=== PATIENT | female | born 1965 | race African-American/Black ===

== ENCOUNTER 2016-11-25 21:25 | Emergency (ER) | payer OTHER ==
[~2016-11-25] VITALS: Ht 157.5 cm; Wt 68.0 kg
[~2016-11-25 21:25] MED LIST: ACETAMINOPHEN-1 EAC3 PO; PERCOCET 5-3251 EACH PO
[2016-11-25 23:46] VITALS: BP 138/72
[2016-11-25] MEDS ORDERED: PREDNISONE20 M1 PO (23:56)
[2016-11-25] MEDS ORDERED: VALTREX1000 MG PO (23:56)
[2016-11-25] MEDS ORDERED: PERCOCET 5-3251 EACH PO (23:58)
[2016-11-25] MEDS ORDERED: NEURONTIN100 M1 PO (23:58)
[2016-11-25] MEDS ORDERED: IBUPROFEN600 M1 PO (23:58)
--- NOTE | 2016-11-25 23:59 | ED SKIN/ALLERGY COMPLAINT ---
History of Present Illness General Chief Complaint: Skin Rash/ Abcess Stated Complaint: "THINK I HAVE SHINGLES ON MY L CHEEK" PER PT Source: patient, old records Exam Limitations: no limitations Vital Signs & Intake/Output Vital Signs & Intake/Output Vital Signs Date Time Temp Pulse Resp B/P Pulse O2 O2 Flow FiO2 Ox Delivery Rate 11/25 2346 98.7 77 18 138/72 98 Room Air 11/25 2205 10.1 77 18 115/83 98 Room Air ED Intake and Output 11/26 0000 11/25 1200 Intake Total Output Total Balance Patient 150 lb Weight Allergies Coded Allergies: NO KNOWN ALLERGIES (01/19/11) Reconcile Medications Acetaminophen With Codeine (Acetaminophen-Cod #3 Tablet) 1 EACH TABLET 1 TAB PO TIDPRN PAIN CONTROL (Reported) Gabapentin (Neurontin) 100 MG CAPSULE 1 CAP PO TID PRN shingles pain Ibuprofen 600 MG TABLET 1 TAB PO Q6PRN PRN pain with food Oxycodone HCl/Acetaminophen (Percocet 5-325 MG Tablet) 1 EACH TABLET 1-2 TAB PO Q6P PRN pain Oxycodone HCl/Acetaminophen (Percocet 5-325 MG Tablet) 5 MG-325 MG TABLET 1 TAB PO Q6P PRN severe pain Prednisone 20 MG TABLET 1 TAB PO BID shingles Valacyclovir HCl (Valtrex) 1,000 MG TABLET 1 TAB PO TID shingles Triage Note: PT TO ED C/O SPREADING SHINGLES. STATES HAD SHINGELS TO RT SIDE OF FACE AND HEAD "I THINK IT'S SPREADING" "I DIDN'T GET THE MEDICAINE THE LAST TIME, I WANT TO GET THE MEDICINE THIS TIME" Triage Nurses Notes Reviewed? yes Onset: Just prior to arrival Duration: day(s):, constant, continues in ED, getting worse Timing: recent history Severity: mild Location: face Possible Factors: no cause identified No Modifying Factors: none Associated Symptoms: change in skin texture, rash LMP (ages 10-50): post menopausal : No Patient currently breastfeeds: No HPI: 2 days prior to admission patient complains of right cheek pain with subsequent development of rash similar to previous episode of shingles. She denies fever chills nausea vomiting diarrhea abdominal pain chest pain shortness breath headache dysuria bleeding change in vision. Past History Travel History Traveled to [place] past 21 day No Medical History Any Pertinent Medical History? 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 No Review of Systems Review of Systems Constitutional: Reports: no symptoms. EENTM: Reports: no symptoms. Respiratory: Reports: no symptoms. Cardiovascular: Reports: no symptoms. GI: Reports: no symptoms. Genitourinary: Reports: no symptoms. Musculoskeletal: Reports: no symptoms. Skin: Reports: see HPI, rash. Neurological/Psychological: Reports: no symptoms. Hematologic/Endocrine: Reports: no symptoms. Immunologic/Allergic: Reports: no symptoms. All Other Systems: Reviewed and Negative Physical Exam Physical Exam General Appearance: well developed/nourished, alert, awake, anxious, mild distress Head: atraumatic Eyes: Bilateral: PERRL, EOMI. Ears, Nose, Throat: normal pharynx, normal ENT inspection, hearing grossly normal Neck: normal inspection, supple Respiratory: normal breath sounds Cardiovascular: regular rate/rhythm Peripheral Pulses: 4+ carotid (R), 4+ carotid (L) Gastrointestinal: soft, non-tender Back: normal inspection Extremities: normal inspection, normal range of motion, no edema Neurologic/Psych: awake, alert, oriented x 3, normal mood/affect Reflexes: 2+: bicep (R), bicep (L). Skin: intact, rash (right cheek bridge of nose) Skin Problem Location: face Skin Problem Character: rash, thickening, vesicular Lymphatic: no anterior cervical raquel Progress Differential Diagnosis: abscess/cellulitis, allergic reaction, shingles Plan of Care: Valtrex analgesia steroid Departure Departure Time of Disposition: 2353 Disposition: HOME OR SELF CARE Condition: Stable Clinical Impression Primary Impression: Shingles Qualifiers: Herpes zoster complications: without complications Qualified Code: B02.9 - Zoster without complications Referrals: PATIENT HAS NO PRIMARY CARE DR (PCP/Family) Departure Forms: Customer Survey General Discharge Information Prescriptions: Current Visit Scripts Prednisone 1 TAB PO BID #10 TAB Valacyclovir HCl (Valtrex) 1 TAB PO TID #30 TAB Ibuprofen 1 TAB PO Q6PRN PRN pain #50 TAB with food Oxycodone HCl/Acetaminophen (Percocet 5-325 MG Tablet) 1 TAB PO Q6P PRN severe pain #20 TAB Gabapentin (Neurontin) 1 CAP PO TID PRN shingles pain #50 CAP
== END 2016-11-26 00:21 ==
LOC: ERH 21:25
DX: B02.9 Zoster without complications (principal)
CPT/HCPCS: J3490

== ENCOUNTER 2017-01-02 18:39 | Emergency (ER) | payer OTHER ==
[~2017-01-02] VITALS: Ht 157.5 cm; Wt 72.1 kg
[~2017-01-02 18:39] MED LIST changes: +IBUPROFEN600 M1 PO; +NEURONTIN100 M1 PO; +PREDNISONE20 M1 PO; +VALTREX1000 MG PO
--- NOTE | 2017-01-02 19:41 | ED HAND/WRIST INJURY COMPLAINT ---
History of Present Illness General Chief Complaint: Hand or Wrist Injury Stated Complaint: FALL, L WRIST PAIN Source: patient, family, old records Exam Limitations: no limitations Vital Signs & Intake/Output Vital Signs & Intake/Output Vital Signs Date Time Temp Pulse Resp B/P B/P Pulse O2 O2 Flow FiO2 Mean Ox Delivery Rate 01/03 2024 97.7 88 18 126/78 97 Room Air 01/02 1849 96.0 99 16 129/89 97 Room Air ED Intake and Output 01/03 0000 01/02 1200 Intake Total Output Total Balance Patient 159 lb Weight Weight Reported by Patient Measurement Method Allergies Coded Allergies: NO KNOWN ALLERGIES (01/19/11) Triage Note: PT STATES SHE FELL AND INJURED HER LEFT WRIST Triage Nurses Notes Reviewed? yes HPI: Patient is a 51 year old female presents complaining of left wrist pain s/p fall. Fall occurred at approximately 4pm today. Patient reports pain is severe , worsens with movement and palpation, has not taken any medication for her symptoms. Patient is right hand dominant. Denies head injury, neck pain, loss of consciousness, numbness. (MAURICIO TO) Reconcile Medications Ibuprofen 800 MG TABLET 1 TAB PO Q8H PRN pain Oxycodone HCl/Acetaminophen (Percocet 5-325 MG Tablet) 5 MG-325 MG TABLET 1 TAB PO Q6H PRN PAIN (MUSTAPHA JORGENSEN,BEE Zavala) Past History Travel History Traveled to [place] past 21 day No Medical History Any Pertinent Medical History? 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 No (MAURICIO TO) Review of Systems Review of Systems Constitutional: Reports: no symptoms. Cardiovascular: Denies: chest pain, syncope. GI: Denies: abdominal pain. Musculoskeletal: Reports: see HPI. Denies: back pain, neck pain. Skin: Reports: no symptoms. Neurological/Psychological: Denies: numbness, paresthesia. Hematologic/Endocrine: Denies: bruising, bleeding. Immunologic/Allergic: Denies: splenectomy. (MAURICIO TO) Physical Exam Physical Exam General Appearance: well developed/nourished, alert, awake Head: atraumatic, normal appearance Eyes: Bilateral: normal appearance. Ears, Nose, Throat: hearing grossly normal Neck: normal inspection, supple, full range of motion, no midline tenderness Cardiovascular/Respiratory: no respiratory distress Back: normal inspection, normal range of motion, no vertebral tenderness Shoulder Left: normal range of motion, normal inspection, nontender Elbow Left: normal range of motion, normal inspection, nontender Forearm Left: tenderness and swelling distal radius. Radial and ulnar pulses 2+ Wrist Left: tenderness distal radius Hand Left: normal inspection, normal range of motion Hand Right: normal inspection, normal range of motion Neurologic/Tendon: normal sensation, normal motor functions, normal tendon functions (MAURICIO TO) Progress Differential Diagnosis: contusion, compartment syndrome, dislocation, fracture, sprain Plan of Care: Orders Procedure Date/time Status Durable Medical Equipment 01/02 1949 Active Results of x-rays discussed with patient. Patient placed in sugar tong splint. Appears stable for discharge and follow-up with orthopedics. (MAURICIO TO) Diagnostic Imaging: Viewed by Me: Radiology Read. Discussed w/RAD: Radiology Read. Radiology Impression: PATIENT: JANNETTE MAN V PRESENT AGE: 51 PATIENT ACCOUNT NO: [id number] : 64 LOCATION: [facility] ORDERING PHYSICIAN: MAURICIO AGUIRRE SERVICE DATE: 01/02/17 EXAM TYPE: RAD - XRY-WRIST COMPLETE-LEFT EXAMINATION: XR WRIST, LEFT CLINICAL INFORMATION: Fall, pain COMPARISON: None TECHNIQUE: AP, lateral, and oblique views of the left wrist. FINDINGS: There is an acute nondisplaced fracture of distal radius with involvement of the radiocarpal joint . Adjacent soft tissue swelling noted. No acute dislocation seen. IMPRESSION: Acute nondisplaced distal radial fracture. DICTATED BY: NUHA MENCHACA MD DATE/TIME DICTATED:01/02/171953 INSPECTOR SCALES:ANGELIA DATE/TIME TRANSCRIBED:01/02/171953 CONFIDENTIAL, DO NOT COPY WITHOUT APPROPRIATE AUTHORIZATION. <Electronically signed in Other Vendor System> SIGNED BY: NUHA MENCHACA MD 01/02/171958 (MAURICIO TO) Departure Departure Time of Disposition: 2008 Disposition: HOME OR SELF CARE Condition: Stable Clinical Impression Primary Impression: Distal radius fracture, left Qualifiers: Encounter type: initial encounter Fracture type: closed Fracture morphology: unspecified fracture morphology Qualified Code: S52.502A - Unspecified fracture of the lower end of left radius, initial encounter for closed fracture Referrals: PATIENT HAS NO PRIMARY CARE DR (PCP/Family) KATIUSKA JORGENSEN,KENNEY Zavala Additional Instructions: Follow-up with the orthopedist listed in her discharge paperwork for further evaluation. Call tomorrow to be seen this week for further evaluation. Wear the splint until you are seen by the orthopedist. Rest, elevate above the level of your heart. Return to the emergency department if numbness, discoloration of the fingers, pain uncontrollable, or worsening of symptoms. Departure Forms: Customer Survey General Discharge Information Prescriptions: Current Visit Scripts Ibuprofen 1 TAB PO Q8H PRN pain #30 TAB Oxycodone HCl/Acetaminophen (Percocet 5-325 MG Tablet) 1 TAB PO Q6H PRN PAIN #12 TAB (MAURICIO TO) PA/METAL FRAMER Co-Sign Statement Statement: ED Attending supervision documentation- [] I saw and evaluated the patient. I have also reviewed all the pertinent lab results and diagnostic results. I agree with the findings and the plan of care as documented in the PA's/METAL FRAMER's documentation. [x] I have reviewed the ED Record and agree with the PA's/METAL FRAMER's documentation. [] Additions or exceptions (if any) to the PAs/METAL FRAMER's note and plan are summarized below: [] (MUSTAPHA JORGENSEN,BEE Zavala) Procedures Splinting Location: LEFT UPPER EXTREMITY Hand-Made Type: orthoglass Splint: sugar-tong Splint Applied By: splint applied by me Pre-Proc Neuro Vasc Exam: normal Post-Proc Neuro Vasc Exam: normal (MAURICIO TO)
--- NOTE | 2017-01-02 19:59 | RADIOLOGY REPORT ---
EXAMINATION: XR WRIST, LEFT CLINICAL INFORMATION: Fall, pain COMPARISON: None TECHNIQUE: AP, lateral, and oblique views of the left wrist. FINDINGS: There is an acute nondisplaced fracture of distal radius with involvement of the radiocarpal joint . Adjacent soft tissue swelling noted. No acute dislocation seen. IMPRESSION: Acute nondisplaced distal radial fracture.
[2017-01-02] MEDS ORDERED: IBUPROFEN800 M1 PO (20:11)
[2017-01-02] MEDS ORDERED: PERCOCET 5-3251 EACH PO (20:11)
[2017-01-02 20:24] VITALS: BP 126/78
== END 2017-01-02 20:25 ==
LOC: ERH 18:39
DX: S52.502A Unspecified fracture of the lower end of left radius, initial encounter for closed fracture (principal); W19.XXXA Unspecified fall, initial encounter; Y93.9 Activity, unspecified; Y92.9 Unspecified place or not applicable
CPT/HCPCS: 73110-LT

== ENCOUNTER 2017-01-05 20:27 | Emergency (ER) | payer OTHER ==
[~2017-01-05] VITALS: Ht 157.5 cm; Wt 72.1 kg
[~2017-01-05 20:27] MED LIST changes: +IBUPROFEN800 M1 PO
--- NOTE | 2017-01-05 21:13 | ED UPPER/LOWER EXTREMITY COMPL ---
History of Present Illness General Chief Complaint: Upper Extremity Injury Stated Complaint: LEFT ARM PAIN Source: patient, family, old records Exam Limitations: no limitations Vital Signs & Intake/Output Vital Signs & Intake/Output Vital Signs Date Time Temp Pulse Resp B/P B/P Pulse O2 O2 Flow FiO2 Mean Ox Delivery Rate 01/05 2043 97.1 81 15 128/78 100 Room Air Allergies Coded Allergies: NO KNOWN ALLERGIES (01/19/11) Reconcile Medications Ibuprofen 800 MG TABLET 1 TAB PO Q8H PRN pain Oxycodone HCl/Acetaminophen (Percocet 5-325 MG Tablet) 5 MG-325 MG TABLET 1 TAB PO Q6H PRN PAIN Triage Note: PT TO ED FOR L ARM PAIN, SEEN TUESDAY HERE IN ED FOR SAME, REPORTING SHE WAS TOLD SHE HAS A FRACTURE. PT TO ED BC SHE HAS NOT FOLLOWED UP WITH ORTHO "ANY MY SPLINT NEEDS TO FIXED, ITS TOO BIG AND BULKY" PT REPORTING SHE HAS NOT SEEN ORTHO "BECAUSE OF MY SITUATION". Triage Nurses Notes Reviewed? yes Onset: Abrupt Duration: day(s): (3) Timing: remote history Severity: mild, moderate Pain/Injury Location: Left: Forearm, Wrist. Method of Injury: fall No Modifying Factors: none Associated Symptoms: stiffness HPI: This is a 51-year-old female who fell and broke her left wrist on Tuesday. She was in the ER has been placed and was told to follow-up with orthopedics. She states she hasn't done that yet because she thought that she'll need to keep the splint on at this point is all he. She's been taking ibuprofen with minimal relief. She does admit to receiving Percocet but didn't take it today. Son presents the ER requesting information for the orthopedics referral again. Past History Travel History Traveled to [place] past 21 day No Medical History Any Pertinent Medical History? 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 No Review of Systems Review of Systems Constitutional: Denies: chills, fever. EENTM: Reports: no symptoms. Respiratory: Reports: no symptoms. Cardiovascular: Denies: chest pain. Gastrointestinal/Abdominal: Reports: no symptoms. Genitourinary: Reports: no symptoms. Musculoskeletal: Reports: joint pain. Skin: Reports: no symptoms. Neurological/Psychological: Reports: no symptoms. Hematologic/Endocrine: Denies: bleeding. Immunological: Reports: no symptoms. All Other Systems: Reviewed and Negative Comments PAINFUL/BULKY SPLINT Physical Exam Physical Exam General Appearance: well developed/nourished, alert, awake, mild distress Head: normal appearance Ears, Nose, Throat: hearing grossly normal Neck: normal inspection, supple, full range of motion Shoulder Left: normal range of motion, normal inspection Shoulder Right: normal range of motion, normal inspection Elbow Left: IN SUGAR TONG SPLINT Elbow Right: normal range of motion, normal inspection Hand Left: IN SPLINT, TENDER OVER WRIST Hand Right: normal inspection, normal range of motion Progress Differential Diagnosis: PAINFUL SPLINT, NON COMPLIANCE WITH ORTHOPEDICS Plan of Care: Orders Procedure Date/time Status Durable Medical Equipment 01/05 2138 Active Current Medications Sig/Neymar Start time Last Medication Dose Stop Time Status Admin Oxycodone/ 1 TAB ONCE ONE 01/05 2145 UNVr 01/05 Acetaminophen 01/05 (Percocet) Percocet administered. Patient requesting to be resplinted. Sugar tong splints removed and replaced. (SHAKA JORGENSEN,HIPOLITO) Departure Departure Time of Disposition: 2140 Disposition: HOME OR SELF CARE Condition: Stable Clinical Impression Primary Impression: Radius fracture Referrals: KATIUSKA JORGENSEN,KENNEY Zavala Additional Instructions: Please take the Motrin and Percocet as directed. Keep the splint on until following up with Dr. Fonseca orthopedics. Departure Forms: Customer Survey General Discharge Information Procedures Splinting Location: LEFT ARM SUGAR TONG SPLINT PLACED, SHOULDER IMMOBILIZER PLACED
[2017-01-05 21:49] VITALS: BP 130/75
== END 2017-01-05 21:57 ==
LOC: ERH 20:27
DX: S52.92XA Unspecified fracture of left forearm, initial encounter for closed fracture (principal); X58.XXXA Exposure to other specified factors, initial encounter; Y92.9 Unspecified place or not applicable; Y93.9 Activity, unspecified

== ENCOUNTER 2017-02-06 18:01 | Observation (INO) | payer OTHER ==
[~2017-02-06] VITALS: Ht 162.6 cm; Wt 63.5 kg
--- NOTE | 2017-02-06 18:32 | ED SYNCOPE COMPLAINT ---
History of Present Illness General Chief Complaint: Syncope and Near-Syncope Stated Complaint: SYNCOPE Source: patient, family, EMS Exam Limitations: no limitations Vital Signs & Intake/Output Vital Signs & Intake/Output Vital Signs Date Time Temp Pulse Resp B/P B/P Pulse O2 O2 Flow FiO2 Mean Ox Delivery Rate 02/06 2144 64 18 114/71 96 Room Air 02/06 1829 84 118/73 02/06 1805 98.2 81 18 94/69 99 Room Air Allergies Coded Allergies: NO KNOWN ALLERGIES (01/19/11) Reconcile Medications No Known Home Medications Triage Note: AFTER BEING IN [employer] SINCE EARLY THIS MORNING AND NOT TAKING TIME TO EAT OR DRINK, PATIENT HAD NEAR SYNCOPAL EPISODE. -LOC +HYPOTENSION 80/40 Triage Nurses Notes Reviewed? yes Timing: single episode today Precipitating Factors: none Context: SITTING AT [employer] Loss of Consciousness: brief (seconds) Associated Symptoms: dizziness, syncope HPI: 51-year-old female presents to emergency department following a syncopal episode. She states that while at religion she was sitting and suddenly blacked out without any prodromal symptoms. Her daughter says that the patient headache away look over her eyes and then began to fall she caught her before she hit the ground. She remained on the ground with her eyes open staring off however and unresponsive for up to 60 seconds. Patient states that she experience a syncopal episode in 2013 and was admitted for about 145 days due to her HIV status. She reports that she has not followed up with an infectious disease specialist in over 1 year and stopped taking HIV medications because she did not like the side effects. Today she denies dizziness, chest pain, dyspnea, lightheadedness, confusion, abdominal pain, changes in weight, recent infection, fevers, chills, changes in vision, changes in bowel movements. Upon second interview she states that she saw her infectious disease specialist last month. (KARINA HENDRICKSON) Past History Travel History Traveled to [place] past 21 day No Medical History Any Pertinent Medical History? 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 No (KARINA HENDRICKSON) Review of Systems Review of Systems Constitutional: Reports: see HPI. EENTM: Reports: no symptoms. Respiratory: Reports: no symptoms. Cardiovascular: Reports: see HPI. GI: Reports: no symptoms. Genitourinary: Reports: no symptoms. Musculoskeletal: Reports: no symptoms. Skin: Reports: no symptoms. Neurological/Psychological: Reports: see HPI. All Other Systems: Reviewed and Negative (KARINA HENDRICKSON) Physical Exam Physical Exam General Appearance: well developed/nourished, no apparent distress, awake, slow speech Head: atraumatic, normal appearance Eyes: Bilateral: normal appearance, PERRL, EOMI. Ears, Nose, Throat: hearing grossly normal Neck: normal inspection, supple, full range of motion Respiratory: normal breath sounds, chest non-tender, no respiratory distress, lungs clear Cardiovascular: regular rate/rhythm Gastrointestinal: normal bowel sounds, soft, non-tender Back: normal inspection, normal range of motion Extremities: normal inspection, normal range of motion Psychiatric: awake, oriented x 3 Cranial Nerves: normal hearing, normal speech, PERRL Motor/Sensory: no motor/sensory deficits Skin: intact, normal color Core Measures ACS in differential dx? Yes CVA/TIA Diagnosis: No Severe Sepsis Present: No Septic Shock Present: No (KARINA HENDRICKSON) Progress Differential Diagnosis: AMI, aortic dissection, drug induced syncope, orthostatic syncope, pericardial tamponade, pulmonary embolus, seizure, sick sinus syndrome, subarachnoid hem., TIA/CVA (AIDS), sepsis Plan of Care: Orders Procedure Date/time Status Nothing by Mouth 02/07 B Active LACTIC ACID 02/06 2341 Active Patient Data 02/06 2145 Active Saline Lock 02/[address] in observation 02/06 2110 Active Misc Message 02/06 2110 Active ED Holding Orders 02/06 2110 Active Vital Signs 02/06 2110 Active Code Status 02/06 2110 Active BLOOD CULTURE 02/06 2041 Active LACTIC ACID 02/06 204 Active MISTAKE 02/06 183 Active Telemetry/Casework Manager 02/06 1830 Active URINALYSIS 02/06 183 Active TROPONIN LEVEL 02/06 183 Complete COMPREHENSIVE METABOLIC PANEL 02/06 1830 Complete CBC WITHOUT DIFFERENTIAL 02/06 183 Complete EKG 02/06 1803 Active Laboratory Tests 02/06/173: Urine Color Pending, Urine Clarity Pending, Urine pH Pending, Ur Specific [place] Pending, Urine Protein Pending, Urine Ketones Pending, Urine Nitrite Pending, Urine Bilirubin Pending, Urine Urobilinogen Pending, Ur Leukocyte Esterase Pending, Ur Microscopic SEDIMENT EXAMINED, Urine RBC Pending, Urine Hemoglobin Pending, Urine Glucose Pending 02/06/172104: Lactic Acid Pending 02/06/171829: Anion Gap 9, Estimated GFR 58 L, BUN/Creatinine Ratio 16.0, Glucose 92, Calcium 9.2, Total Bilirubin 0.5, AST 59 H, ALT 65 H, Alkaline Phosphatase 227 H, Troponin I < 0.01, Total Protein 6.7, Albumin 3.8, Globulin 2.9, Albumin/ Globulin Ratio 1.3, CBC w Diff MAN DIFF ORDERED, RBC 3.86 L, MCV 79.6 L, MCH 26.5 L, RDW 15.9 H, MPV 11.1 H, Gran % 73.5, Lymphocytes % 12.8 L, Monocytes % 12.1 H, Eosinophils % 1.6, Basophils % 0 L, Absolute Granulocytes 1.5, Segmented Neutrophils 71, Band Neutrophils 6 H, Absolute Lymphocytes 0.3 L, Lymphocytes 13 L, Monocytes 10 H, Absolute Monocytes 0.2, Absolute Eosinophils 0, Absolute Basophils 0, Platelet Estimate DECREASED, Hypochromic-Microcytic 1+, Anisocytosis 1+, Microcytic Cells 1+, PUBS MCHC 33.3 Microbiology 02/06 2105 BLOOD: Blood Culture - RECD 02/06 2041 BLOOD: Blood Culture - ORD Diagnostic Imaging: Viewed by Me: Radiology Read, CT Scan. Discussed w/RAD: Radiology Read, CT Scan. Radiology Impression: PATIENT: JANNETTE MAN PRESENT AGE: 51 PATIENT ACCOUNT NO: [id number] : 64 LOCATION: [facility] ORDERING PHYSICIAN: KARINA AGUIRRE SERVICE DATE: 02/06/17 EXAM TYPE : CAT - CT HEAD WO IV CONTRAST EXAMINATION: CT HEAD WITHOUT CONTRAST CLINICAL INFORMATION: 51-year-old woman with syncope. COMPARISON: None TECHNIQUE: Contiguous axial imaging was performed from the skull base to vertex without intravenous administration of contrast. DLP: 621 mGy-cm FINDINGS: There is no evidence of acute intracranial hemorrhage or territorial infarction. No abnormal mass effect or midline shift is seen. Flores to white matter differentiation is well preserved. No extra-axial fluid collections are identified. The ventricles are normal in size. Mild chronic microvascular ischemic changes are noted throughout the supratentorial white matter. The osseous structures and soft tissues are normal. The mastoid air cells and visualized portions of the paranasal sinuses are well aerated. IMPRESSION: No acute intracranial pathology. DICTATED BY: ALEX SIMS MD DATE/TIME DICTATED:02/06/171946 HIV/AIDS CARE NURSE: ANGELIA DATE/TIME TRANSCRIBED:02/06/171946 CONFIDENTIAL, DO NOT COPY WITHOUT APPROPRIATE AUTHORIZATION. <Electronically signed in Other Vendor System> SIGNED BY: ALEX SIMS MD 02/06/171951, SERVICE DATE: 02/06/171829 EXAM TYPE: CAT - CT HEAD WO IV CONTRAST EXAMINATION: CT HEAD WITHOUT CONTRAST CLINICAL INFORMATION: 51-year-old woman with syncope. COMPARISON: None TECHNIQUE: Contiguous axial imaging was performed from the skull base to vertex without intravenous administration of contrast. DLP: 621 mGy-cm FINDINGS: There is no evidence of acute intracranial hemorrhage or territorial infarction. No abnormal mass effect or midline shift is seen. Flores to white matter differentiation is well preserved. No extra-axial fluid collections are identified. The ventricles are normal in size. Mild chronic microvascular ischemic changes are noted throughout the supratentorial white matter. The osseous structures and soft tissues are normal. The mastoid air cells and visualized portions of the paranasal sinuses are well aerated. IMPRESSION: No acute intracranial pathology. DICTATED BY: ALEX SIMS MD DATE/TIME DICTATED:07/15 HIV/AIDS CARE NURSE:ANGELIA DATE/TIME TRANSCRIBED:02/06/171946 CXR Impression: PATIENT: JANNETTE MAN PRESENT AGE: 51 PATIENT ACCOUNT NO: [id number] : 64 LOCATION: [facility] ORDERING PHYSICIAN: KARINA AGUIRRE SERVICE DATE: 02/06/17 EXAM TYPE: RAD - XRY-PORTABLE CHEST XRAY EXAMINATION: XR PORTABLE CHEST CLINICAL INFORMATION: Syncope. COMPARISON: 04/19/2016 TECHNIQUE: Portable frontal view of the chest was obtained. FINDINGS: Lungs are well expanded and clear. No pneumothorax or pleural effusion. Cardiac silhouette is normal in size. The pulmonary vascular pattern is normal. The mediastinal and hilar contours are normal. The visualized bones are normal. IMPRESSION: No acute cardiopulmonary disease. DICTATED BY: GAVIN JACOBSEN MD DATE/TIME DICTATED:02/06/171854 HIV/AIDS CARE NURSE:ANGELIA DATE/TIME TRANSCRIBED:02/06/171854 CONFIDENTIAL, DO NOT COPY WITHOUT APPROPRIATE AUTHORIZATION. <Electronically signed in Other Vendor System> SIGNED BY: GAVIN JACOBSEN MD 02/06/171900 Initial ED EKG: normal sinus rhythm. rate 83bpm, low voltage through out, non specific ST changes Comments: Patient with history of AIDS/HIV presents following syncopal episode while sitting at religion. Recent CD4 levels are unknown. White count shows leukopenia. Patient also othostatic hypotensive. Possiblity of infection given immunocompromised state, blood cultures drawn. TIA also possible etiology of syncope, head CT does not show acute cranial bleed. CXR within normal limits. (KARINA HENDRICKSON) Departure Departure Disposition: STILL A PATIENT Condition: Stable Clinical Impression Primary Impression: Syncope and collapse Secondary Impressions: Anemia, Leukopenia, Orthostatic hypotension, Thrombocytopenia Referrals: PATIENT HAS NO PRIMARY CARE DR (PCP/Family) Departure Forms: Customer Survey General Discharge Information Prescriptions: Current Visit Scripts No Known Home Medications Observation Note Spoke With: KRISHNA HASKINS MD Physician Advisor Notified: SACHI JORGENSEN,GUILHERME Gallardo Place Patient In: Non-ED OBS Care Area Rationale for Observation: My rational for observation is as follows . Patient will require IV fluids. Cardiac telemetry. Cardiac consultation. Patient may require infectious disease consultation. CD4 count. Patient is immunocompromised. High risk for infection. Patient has a history of HIV and has not taken any of her medications for a long time. Syncope versus TIA versus seizure. Patient may require neuro consultation. Repeat labs. (KARINA HENDRICKSON) PA/FRUIT BUYING GRADER Co-Sign Statement Statement: ED Attending supervision documentation- [] I saw and evaluated the patient. I have also reviewed all the pertinent lab results and diagnostic results. I agree with the findings and the plan of care as documented in the PA's/FRUIT BUYING GRADER's documentation. x] I have reviewed the ED Record and agree with the PA's/FRUIT BUYING GRADER's documentation. [] Additions or exceptions (if any) to the PAs/FRUIT BUYING GRADER's note and plan are summarized below: [] (MUSTAPHA JORGENSEN,BEE Zavala) ED Attending Observation Initial Observation Note: I have seen and personally examined JANNETTE MAN on 02/06/17 at 2049. I agree with the current emergency department documentation. The disposition (admission or discharge) is uncertain at this time, she needs a period of observation for the following reason(s): The ED Nurse caring for this patient has been personally informed as to what the patient is being observed for. (GAYLE AGUIRRE,KARINA)
[2017-02-06 18:53] LABS: ABSOLUTE BASOPHIL COUNT 0 /CUMM (0.0-0.2); ABSOLUTE EOSINOPHIL COUNT 0 /CUMM (0.0-0.7); ABSOLUTE GRANULOCYTE CT 1.5 /CUMM (1.4-6.5); ABSOLUTE LYMPH COUNT 0.3 /CUMM (1.2-3.4); ABSOLUTE MONOCYTE COUNT 0.2 /CUMM (0.10-0.60); BASOPHIL % 0 % (0.0-2.0); EOSINOPHIL % 1.6 % (0-5); GRANULOCYTE % 73.5 % (42.2-75.2); HEMATOCRIT 30.7 % (37-47); MEAN CORPUSCULAR HGB 26.5 PG (27.0-31.0); MEAN CORPUSCULAR HGB CONC 33.3 G/DL (33.0-37.0); MEAN CORPUSCULAR VOLUME 79.6 FL (81.0-99.0); MEAN PLATELET VOLUME 11.1 FL (7.4-10.4); PLATELET COUNT 66 /CUMM (130-400); RBC DISTRIBUTION WIDTH 15.9 % (11.5-14.5); RED BLOOD CELL CT 3.86 /CUMM (4.20-5.40)
--- NOTE | 2017-02-06 19:01 | RADIOLOGY REPORT ---
EXAMINATION: XR PORTABLE CHEST CLINICAL INFORMATION: Syncope. COMPARISON: 04/19/2016 TECHNIQUE: Portable frontal view of the chest was obtained. FINDINGS: Lungs are well expanded and clear. No pneumothorax or pleural effusion. Cardiac silhouette is normal in size. The pulmonary vascular pattern is normal. The mediastinal and hilar contours are normal. The visualized bones are normal. IMPRESSION: No acute cardiopulmonary disease.
--- NOTE | 2017-02-06 19:52 | CT SCAN REPORT ---
EXAMINATION: CT HEAD WITHOUT CONTRAST CLINICAL INFORMATION: 51-year-old woman with syncope. COMPARISON: None TECHNIQUE: Contiguous axial imaging was performed from the skull base to vertex without intravenous administration of contrast. DLP: 621 mGy-cm FINDINGS: There is no evidence of acute intracranial hemorrhage or territorial infarction. No abnormal mass effect or midline shift is seen. Flores to white matter differentiation is well preserved. No extra-axial fluid collections are identified. The ventricles are normal in size. Mild chronic microvascular ischemic changes are noted throughout the supratentorial white matter. The osseous structures and soft tissues are normal. The mastoid air cells and visualized portions of the paranasal sinuses are well aerated. IMPRESSION: No acute intracranial pathology.
[2017-02-06 22:53] VITALS: BP 108/70
--- NOTE | 2017-02-06 22:55 | History & Physical ---
JAYE THORNE 02/06/17 4845: General Information and HPI MD Statement: I have seen and personally examined JANNETTE MAN and documented this H&P. The patient is a 51 year old F who presented with a patient stated chief complaint of syncope Source of Information: patient Exam Limitations: no limitations History of Present Illness: 51 year old woman with pmh h/o AIDs, extended hospitalization in [place] in 2014 for seizures? AIDS, stopped antiretroviral medication on her own in 2016, no regular medical follow up. BIBA for episode of syncope earlier today. She has not eated anything today and drove in her hot car with the windows up to jehovah's witness. While in jehov[employer]'s witness around 4: 30pm, her daughter noticed her eyes rolled back and lost consciousness. Reports no jerking movements, tongue biting, bowel/bladder incontinence, preceding symptoms, palpitiations, chest pain, numbness, weakness of extremities. Stated that the time she was taken to [place] it was due to seizures. She is not on any seizure medications and has not had any further seizure episode. 3 weeks ago she had a fall while walking through a door at the same time as another person and fractured her left arm. Multiple attempts made to family to obtain collateral information were unsucessful. Allergies/Medications Allergies: Coded Allergies: NO KNOWN ALLERGIES (01/19/11) Home Med list No Known Home Medications Compliance With Home Meds: POOR Past History Travel History Traveled to [place] past 21 day No Medical History Neurological: NONE EENT: NONE Cardiovascular: NONE Respiratory: NONE Gastrointestinal: NONE Hepatic: NONE Renal: NONE Musculoskeletal: NONE Psychiatric: NONE Endocrine: NONE Blood Disorders: NONE Cancer(s): NONE CLEANER SIGNS/Reproductive: NONE Other Medical Hx: HIV/AIDS shingles Isolation History: Standard Surgical History Surgical History: non-contributory Past Family/Social History Family History Relations & Conditions if any Relation not specified for: *No pertinent family history Psychosocial History Where do you live? Home Who Do You Live With? spouse Services at Home: None Smoking Status: Never Smoked ETOH Use: denies use Functional Ability ADLs Independent: dressing, eating, toileting, bathing. Ambulation: independent IADLs Independent: shopping, housework, finances, food prep, telephone, transportation , medication admin. Review of Systems Review of Systems Constitutional: Denies: chills, diaphoresis, fever, malaise, weakness, unexplained weight loss. Cardiovascular: Denies: chest pain, edema, orthopena, palpitations, peripheral edema, syncope. Respiratory: Denies: cough, hemoptysis, orthopnea, short of breath, sputum production, stridor, wheezing. GI: Denies: abdominal pain, bloating, constipation, diarrhea, distention, bowel incontinence, melena, nausea, bloody stool, changes in stool, vomiting, steatorrhea. Genitourinary: Denies: discharge, dysuria, frequency, hematuria, hesitation, nocturia, pain, urgency. Exam & Diagnostic Data Last 24 Hrs of Vital Signs/I&O Vital Signs Date Time Temp Pulse Resp B/P B/P Pulse O2 O2 Flow FiO2 Mean Ox Delivery Rate 02/06 2253 99.1 74 20 108/70 100 02/06 2144 64 18 114/71 96 Room Air 02/06 1829 84 118/73 02/06 1805 98.2 81 18 94/69 99 Room Air Intake & Output 02/07 0800 02/07 0000 02/06 1600 Intake Total 1000 Output Total Balance 1000 Intake, IV 1000 Patient 140 lb Weight Weight Reported by Patient Measurement Method Physical Exam General Appearance Alert, Oriented X3, Cooperative, No Acute Distress Skin No Breakdown, No Significant Lesion HEENT Atraumatic, PERRLA, defect in midline tongue noted Neck Supple, No JVD, No thryomegaly Cardiovascular Regular Rate, Normal S1, Normal S2 Lungs Clear to Auscultation, Normal Air Movement Abdomen Normal Bowel Sounds, Soft, No Tenderness Neurological Normal Speech, Strength at 5/5 X4 Ext, Normal Tone, Sensation Intact, Cranial Nerves 3-12 NL Extremities No Edema, Normal Pulses, cast on left arm Last 24 Hrs of Labs/Rafita: Laboratory Tests 02/07/17 0130: Lactic Acid 1.8, Troponin I Pending 02/06/172132: Urine Color YEL, Urine Clarity CLEAR, Urine pH 7.0, Ur Specific [place] <= 1.005 , Urine Protein NEG, Urine Ketones NEG, Urine Nitrite NEG, Urine Bilirubin NEG, Urine Urobilinogen 0.2, Ur Leukocyte Esterase TRACE H, Ur Microscopic SEDIMENT EXAMINED, Urine RBC RARE, Urine WBC 1-3 H, Ur Epithelial Cells FEW, Urine Bacteria FEW H, Urine Mucus RARE, Urine Hemoglobin NEG, Urine Glucose NEG 02/06/175: Lactic Acid 1.7 02/06/172040: Lactic Acid Cancelled 02/06/171829: Anion Gap 9, Estimated GFR 58 L, BUN/Creatinine Ratio 16.0, Glucose 92, Calcium 9.2, Total Bilirubin 0.5, AST 59 H, ALT 65 H, Alkaline Phosphatase 227 H, Troponin I < 0.01, Total Protein 6.7, Albumin 3.8, Globulin 2.9, Albumin/ Globulin Ratio 1.3, Vitamin B12 > 1000 H, CBC w Diff MAN DIFF ORDERED, RBC 3.86 L, MCV 79.6 L, MCH 26.5 L, RDW 15.9 H, MPV 11.1 H, Gran % 73.5, Lymphocytes % 12.8 L, Monocytes % 12.1 H, Eosinophils % 1.6, Basophils % 0 L, Absolute Granulocytes 1.5, Segmented Neutrophils 71, Band Neutrophils 6 H, Absolute Lymphocytes 0.3 L, Lymphocytes 13 L, Monocytes 10 H, Absolute Monocytes 0.2, Absolute Eosinophils 0, Absolute Basophils 0, Platelet Estimate DECREASED, Hypochromic-Microcytic 1+, Anisocytosis 1+, Microcytic Cells 1+, PUBS MCHC 33.3, RPR Titer/FTA Pending Microbiology 02/06 2105 BLOOD: Blood Culture - RECD 02/06 2041 BLOOD: Blood Culture - CAN Cancelled: SPECIMEN NEVER OBTAINED. FLOOR UNABLE TO DRAW Diagnostic Data EKG Results NSR, OK 180, non specific ST flattening in lateral leads. CXR Results SERVICE DATE: 02/06/17-1829 EXAM TYPE: RAD - XRY-PORTABLE CHEST XRAY FINDINGS: Lungs are well expanded and clear. No pneumothorax or pleural effusion. Cardiac silhouette is normal in size. The pulmonary vascular pattern is normal. The mediastinal and hilar contours are normal. The visualized bones are normal. IMPRESSION: No acute cardiopulmonary disease. Assessment/Plan Assessment: 51 year old woman with pmh h/o AIDs, extended hospitalization in [place] in 2014 for seizures? AIDS, stopped antiretroviral medication on her own in 2016, no regular medical follow up. BIBA for episode of syncope earlier today. Vitals pertinent for hypotension, orthostat positive. Labs remarkable for pancytopenia, hypokalemia, mild transaminitis, increased ALP. Trop neg. CT head and CXR WNL. As Ranked By This Provider Problem List: 1. Syncope Assessment/Plan Possible causes: dehydration (no po Intake) VS seizures vs Cardiogenic (less likely no h/o of murmurs, palpitations, chest pain) admit to tele floor for continuous cardiac montoring, keep on seizure precautions IV ativan PRN, if she seizes then will start loading dose of keppra F/up EEG Echo to r/o structural disease such as Aortic stenosis trend EKG/trop to r/o ACS (less likely) Please obtain collateral history from family f/up Vit b12, TSh/T4 cardio consult in am neuro consult 2. HIV (human immunodeficiency virus infection) Assessment/Plan f/up CD4 count/ viral load, RPR Obtain records from patient's infectious disease physician and [facility] records MRI head to r/o structural disease ID consult in the am 3. Pancytopenia Assessment/Plan possible secondary to HIV infection, monitor closely for any bleeding or infection. 4. Hypokalemia Assessment/Plan repleted, continue to monitor 5. Transaminitis Assessment/Plan mild with elevated ALP unclear etiology at time, does not complain of nausea, vomiting or abdominal pain, downs's sign negative. 6. DVT prophylaxis Assessment/Plan ALPs secondary to thrombocytopenia 7. Full code status Core Measures/Miscellaneous Acute Coronary Syndrome ACS Diagnosis: No Cerebrovascular Accident CVA/TIA Diagnosis: No Congestive Heart Failure CHF Diagnosis: No VTE (View Protocol) VTE Risk Factors: Age > 40 No [facility] VTE prophylaxis d/t: No contraindications No VTE Pharm Prophylaxis d/t: Blood coag disorder VTE Diagnosis: No VTE Type: NONE VTE Confirmed by (Test): NONE Sepsis (View Protocol) Severe Sepsis Present: No Septic Shock Septic Shock Present: No Miscellaneous Documentation Attending Case Discussed With: KRISHNA HASKINS MD Primary Care Physician: PATIENT HAS NO PRIMARY CARE DR Patient sees these Specialists infectious disease Level of Patient Care: Telemetry SAGAR WEIR 02/07/17 0219: Resident Review Statement Resident Statement: examined this patient, discussed with international logistics coordinator, agreed with international logistics coordinator, reviewed EMR data (avail), reviewed images, amended to note Other Findings: Ms. Man is a 51-year-old woman who presented to the emergency department following an episode of transient loss of consciousness. Patient daughter described that during the episode, patient's eyes rolled back and patient was unresponsive for a few seconds. Patient denied any prodrome, no postictal phase. Patient did report decreased oral and fluid intake throughout the day and being out in the heat. She denied any precipitating events such as fear, pain or emotional distress. Arrhythmia related syncope seems unlikely, as the EKG shows no evidence of significant tachyarrhythmia or bradyarrhythmia. No prodrome suggestive of a vasovagal or a situational syncopal event. Likely events that might have led to patient's loss of consciousness can be orthostatic hypertension or a seizure, although TIA or carotid origin of LOC cannot be entirely ruled out. 1. Syncope versus seizure: Positive orthostatics noted. Fluid hydration with normal saline, encourage by mouth intake. Check orthostatics tomorrow morning. MRI of the head. EEG. Seizure precautions. Ativan PRN. Neurology consultation, pending above. Continue cardiac monitoring on telemetry to rule out any possibility of arrhythmia related syncope. Rule out ACS by serial troponins and EKG. Check echocardiogram to rule out any structural heart disease. History of recurrent falls in this HIV positive patient, AIDS myelopathy unlikely. May check RPR to rule out tabes dorsalis, unlikely. Check vitamin B12 and copper levels. 2. Pancytopenia, likely secondary to HIV infection: Continue to monitor closely for any infection. Watch off antibiotics. Check CD4 counts, HIV viral load. Obtain records from patient infectious disease physician. 3. Hypokalemia: Potassium repleted, recheck in a.m. No EKG changes. Full code ALPs for DVT ppx Regular diet KRISHNA HASKINS 02/07/17 0247: Attending MD Review Statement Attending Statement Attending MD Statement: examined this patient, discuss w/resident/PA/LEATHER TOOLER, agreed w/resident/PA/LEATHER TOOLER, discussed with family, reviewed EMR data (avail), reviewed images, amended to note Attending Assessment/Plan: Cc: syncope PMH: HIV ?AIDS History is obtained from patient's and patient. Since last 2 days patient has decreased by mouth intake, patient went to jehovah's witness today and towards the end of it, she slumped over one side, family was sitting next to her or supported her. For a few seconds or a minute, patient had a staring spell and was not responding. Patient was breathing fine according to family. They did not notice any muscle stiffness, seizure-like activity, bowel or bladder incontinence, tongue bite. EMS was immediately called and patient was awake before EMS came there. Patient does not remember the episode. Recent hospitalization was yelling towards end of 2014 and early 2016 for extended stay (?140 days) with similar symptoms and was found to have seizures at that time. Patient had stopped taking antiretroviral medications since last year, on her own. She is also not on any antiseizure medications. Patient denies any history of fever, chills, headache. Complete ROS is unremarkable. Vitals: Afebrile, pulse 81, RR 18, blood pressure upon arrival 96/89 improved to 118/73 with hydration, saturating well on room air. On exam: A O 3, cooperative, no acute distress, neck supple, JVD normal, no lymphadenopathy, mucosa moist, no focal neurological deficit, no dependent edema , no obvious skin rashes or inflammation CVS: S1-S2, RRR. RS: Clear to auscultate bilaterally. Abdomen: Soft, NT, ND, bowel sounds present. Labs: WBC 2.0, hemoglobin 10.2, hematocrit 30.7, platelets 66, lymphocytes 12%, band 6, sodium 141, potassium 3.2, chloride 108, bicarbonate 24, BUN 16, creatinine 1.0, anion gap 9, glucose 92, AST 59, AST 65, alkaline phosphatase 227, troponin less than 0.01 UA positive for leukocyte esterase CXR: No acute cardiopulmonary disease. CT head:No acute intracranial pathology. EKG: Unremarkable A and P 51 year old female with a past medical history significant for HIV presented with an episode of syncope. Unclear if patient had seizure, patient did not have any post ictal confusion, no tongue bite, no bladder or bowel incontinence but patient was admitted with similar complaints in 2014/2015, and was found to have seizures. Currently patient does not appear to be on any antiseizure medications. Also patient is noncompliant with antiretroviral, not aware of CD4 count or viral load. From the claims history it appears that she was on azithromycin and atovaquone prophylaxis in the past. Examination is unremarkable but patient has significant pancytopenia especially leukopenia and thrombocytopenia with possibly low CD4 count. Further workup and evaluation for syncope is essential given this past medical history to rule out any seizures secondary to intracranial lesions or cardiogenic causes. Patient was found to have positive orthostatic hypotension in ER and blood pressure responded well to IV fluids this could be a contributing factor as well. + Syncope + History of HIV, ?AIDS + Pancytopenia + Hypokalemia + Mild transaminitis - Placed in observation on telemetry floor - Continuous telemetry monitoring - Serial EKG and troponin - Replace electrolytes - Repeat orthostatic vital in a.m. - 2-D echocardiogram - MRI brain with and without contrast - EEG - Seizure precautions - When necessary Ativan for seizure, if patient had witnessed seizure then start Keppra - Neurologic consult, cardiology consult, ID consult - CD4 count, viral load - Repeat CBC BMP LFT in a.m. - Continue gentle hydration - Adequate pain control - DVT prophylaxis
[2017-02-07 07:56] VITALS: BP 118/76
--- NOTE | 2017-02-07 11:01 | PN- Housestaff ---
MARLENY SHIPLEY MD,[facility] 02/07/17 1101: Subjective Follow-up For: Syncope Hypokalemia Pancytopenia History of HIV not on treatment Complaints: no complaints Tele-Events Since Last Visit: Sinus bradycardia, sinus rhythm, heart rate 60 to 70s Subjective: Patient feels roxi did not complain of any more presyncope/syncopal events overnight. She did not have any complaints to offer. Remained afebrile overnight with a MAXIMUM TEMPERATURE of 99.1 Review of Systems Constitutional: Denies: chills, fever. EENTM: Denies: visual changes. Cardiovascular: Denies: chest pain, palpitations. Respiratory: Denies: cough, short of breath. Gastrointestinal: Denies: abdominal pain, nausea, vomiting. Genitourinary: Denies: discharge. Objective Last 24 Hrs of Vital Signs/I&O Vital Signs Date Time Temp Pulse Resp B/P B/P Pulse O2 O2 Flow FiO2 Mean Ox Delivery Rate 02/07 0756 98.9 67 20 118/76 97 Room Air 02/06 2253 99.1 74 20 108/70 100 02/06 2144 64 18 114/71 96 Room Air 02/06 1829 84 118/73 02/06 1805 98.2 81 18 94/69 99 Room Air Intake & Output 02/07 1600 02/07 0800 02/07 0000 Intake Total 100 1000 Output Total Balance 100 1000 Intake, IV 1000 Intake, Oral 100 Patient 140 lb Weight Weight Reported by Patient Measurement Method Physical Exam General Appearance: Alert, Oriented X3, Cooperative, No Acute Distress Skin: No Rashes HEENT: Atraumatic Neck: No JVD Cardiovascular: Regular Rate, Normal S1, Normal S2, No Murmurs Lungs: Clear to Auscultation, Normal Air Movement Abdomen: Normal Bowel Sounds, Soft, No Tenderness Extremities: No Clubbing, No Cyanosis, No Edema Vascular: Normal Pulses Current Medications: Current Medications Sig/Neymar Start time Last Medication Dose Route Stop Time Status Admin Lorazepam 2 MG Q4P PRN 02/07 0230 AC IV Patient Medication 1 ED .STK-MED ONE 02/07 1413 DC Teaching ED 02/07 1414 Potassium Chloride 40 MEQ ONCE ONE 02/06 2300 DC 02/06 PO 02/06 2301 2324 Potassium Chloride 40 MEQ CONTINOUS INFUSION 02/06 2245 AC 06/12 Sodium Chloride 1,000 ML IV 0220 Sodium Chloride 1,000 ML BOLUS ONE 02/06 1915 DC 02/06 IV 02/06 Last 24 Hrs of Lab/Rafita Results Last 24 Hrs of Labs/Mics: Laboratory Tests 02/07/17 1254: Total Abs Lymphocytes Pending 02/07/17 1254: Anion Gap 8, Estimated GFR > 60, BUN/Creatinine Ratio 13.8, Iron 47, TIBC Pending, Ferritin Pending, Total Bilirubin 0.5, Direct Bilirubin 0.2, AST 52 H, ALT 54 H, Alkaline Phosphatase 207 H, Troponin I < 0.01, Total Protein 6.4, Albumin 3.6, TSH 0.720, Free T4 0.80, CBC w Diff MAN DIFF ORDERED, WBC Pending, RBC Pending, Hgb Pending, Hct Pending, MCV Pending, MCH Pending, RDW Pending, Plt Count Pending, MPV Pending, Gran % Pending, Lymphocytes % Pending, Monocytes % Pending, Eosinophils % Pending, Basophils % Pending, Absolute Granulocytes Pending, Segmented Neutrophils Pending, Absolute Lymphocytes Pending, Absolute Monocytes Pending, Absolute Eosinophils Pending, Absolute Basophils Pending, PUBS MCHC Pending, Lymphocyte Subset Cmmnt Pending, Absolute CD3 Count Pending, % CD3 Mature T-Lymphs Pending, % CD4 [place] Pending, Absolute CD4 Count Pending, T-Help/Suppress Ratio Pending, % CD8 Suppressor Pending, Absolute CD8 Count Pending, HIV 1&2 Ab Western Blot Pending, Serum Copper Pending 02/07/17 0600: Total Bilirubin Cancelled, Direct Bilirubin Cancelled, AST Cancelled, ALT Cancelled, Alkaline Phosphatase Cancelled, Total Protein Cancelled, Albumin Cancelled 02/07/17 0130: Lactic Acid 1.8, Troponin I < 0.01 02/06/17 2133: Urine Color YEL, Urine Clarity CLEAR, Urine pH 7.0, Ur Specific [place] <= 1.005 , Urine Protein NEG, Urine Ketones NEG, Urine Nitrite NEG, Urine Bilirubin NEG, Urine Urobilinogen 0.2, Ur Leukocyte Esterase TRACE H, Ur Microscopic SEDIMENT EXAMINED, Urine RBC RARE, Urine WBC 1-3 H, Ur Epithelial Cells FEW, Urine Bacteria FEW H, Urine Mucus RARE, Urine Hemoglobin NEG, Urine Glucose NEG 02/06/17 2105: Lactic Acid 1.7 02/06/172040: Lactic Acid Cancelled 02/06/17 1830: Anion Gap 9, Estimated GFR 58 L, BUN/Creatinine Ratio 16.0, Glucose 92, Calcium 9.2, Total Bilirubin 0.5, AST 59 H, ALT 65 H, Alkaline Phosphatase 227 H, Troponin I < 0.01, Total Protein 6.7, Albumin 3.8, Globulin 2.9, Albumin/ Globulin Ratio 1.3, Vitamin B12 > 1000 H, CBC w Diff MAN DIFF ORDERED, RBC 3.86 L, MCV 79.6 L, MCH 26.5 L, RDW 15.9 H, MPV 11.1 H, Gran % 73.5, Lymphocytes % 12.8 L, Monocytes % 12.1 H, Eosinophils % 1.6, Basophils % 0 L, Absolute Granulocytes 1.5, Segmented Neutrophils 71, Band Neutrophils 6 H, Absolute Lymphocytes 0.3 L, Lymphocytes 13 L, Monocytes 10 H, Absolute Monocytes 0.2, Absolute Eosinophils 0, Absolute Basophils 0, Platelet Estimate DECREASED, Hypochromic-Microcytic 1+, Anisocytosis 1+, Microcytic Cells 1+, PUBS MCHC 33.3, RPR Titer/FTA NONREACTIVE Microbiology 02/07 1335 BLOOD: Blood Culture - RECD 02/07 1307 BLOOD: Blood Culture - RECD 02/06 2105 BLOOD: Blood Culture - CAN Cancelled: Quantity not sufficient for both blood culture bottles. 02/06 2041 BLOOD: Blood Culture - CAN Cancelled: SPECIMEN NEVER OBTAINED. FLOOR UNABLE TO DRAW Lines/Diet/Fluids Restraints: none Assessment/Plan Assessment: 51-year-old female with past medical history significant for HIV not currently on any treatment, unaware of CD4 count and viral load, history of extended hospitalization at [facility] for HIV related complications, unremarkable history for seizures not on any antiseizure medication, decreased by mouth intake, with transient loss of consciousness at [facility] admitted for syncope. was witness to the episode denied any muscle twitching, post ictal confusion, tongue bite, bladder or bowel incontinence. Syncope -Most likely orthostaics (as supported by history of decreased by mouth intake recently) vs neurological ( possibility of intracranial foci versus lesions in the setting of untreated HIV infection ) vs unlikely arrythmias or vasovagal. - We will recheck Orthostatics - No acute EKG changes and 3 sets of troponins negative - Advise compression stockings still orthostatic positive. - Echocardiogram ordered - Cardio evaluation pending - Head CT rules out any acute Intracranial bleed or masses. - Head MRI showed few ill-defined nonspecific white matter signal changes. There is no associated enhancement on postcontrast images. 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 Pancytopenia Likely as a result of progression of HIV without treatment. Patient was counseled at length but still did not agreeto start any treatment for now. Iron studies ordered. We'll place the patient on neutropenic precautions. ANC 630 Hypokalemia Patient denied any active diarrhea. Likely secondary to malnutrition resolved with replacement Transaminitis Possible cause of transaminitis unclear. We'll trend LFTs tomorrow. Patient is currently not on any hepatotoxic medication. Consider right upper quadrant ultrasound to rule out underlying hepatitis C. Patient is full code Patient is on Alps for DVT prophylaxis Patient is on regular diet Patient is on pain management Problem List: 1. Pancytopenia 2. Hypokalemia Pain Ratin Pain Location: NA Pain Goal: Pain 4 or less Pain Plan: Pain management pathway Tomorrow's Labs & Rationales: CBC for pancytopenia LFTs for transaminitis DEEPA WHITE MD 02/07/17 1235: Attending MD Review Statement Attending Statement Attending MD Statement: examined this patient, discuss w/resident/PA/ANTHROPOLOGY DEPARTMENT CHAIR, agreed w/resident/PA/ANTHROPOLOGY DEPARTMENT CHAIR, discussed with family, reviewed EMR data (avail), discussed with nursing, discussed with case mgmt, amended to note Attending Assessment/Plan: Patient seen and examined. Resting comfortably a motility acute distress. No issues overnight. No events on telemetry. No further seizure episodes while on admission. Patient and deny any history of seizures since her initial episode several years ago. During the episode of syncope yesterday there was no tongue biting. There was no incontinence. There is no report of a postictal state. On examination today she is alert and oriented 3. She has no focal deficits on examination. Cardiac sounds are normal with no murmurs. Problems: 1. Syncope 2. Pancytopenia 3. History of HIV not on therapy 4. Hypokalemia 5. Poor intravenous access. Recommendations: -Patient's previous history of seizures raises concern for a recurrent seizure episode. Recommend EEG. If negative follow-up with the neurology service regarding outpatient 24hr EEG. -Complete cardiac workup for syncope by obtaining an echocardiogram and continue telemetry monitoring for another 24 hours. 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 -Patient has previous history of HIV infection but intentionally stopped medication on her own over a year ago. Recommend outpatient follow-up with her primary care provider/ID service. -Her microcytic anemia and pancytopenia are likely chronic and secondary to HIV. No comparisons are available here. Obtain records from her primary care provider. Check stool guaiac. Repeat labs in the morning. Check iron profile. _Lfts are mildly elevated. Obtain RUQ sonogram. -Repeat potassium level once IV access can be obtained.
--- NOTE | 2017-02-07 11:31 | MRI REPORT ---
EXAMINATION: MR BRAIN WITHOUT AND WITH CONTRAST CLINICAL INFORMATION: History of AIDS. Recurrent falls. Syncope. COMPARISON: CT head 02/06/2017. TECHNIQUE: MRI of the brain was obtained using routine sequences before and after the intravenous administration of 13 mL of OptiMARK. FINDINGS: Geometric distortion and susceptibility artifact related to the patient's orthodontic hardware degrades image quality on many of the acquired sequences therefore the diagnostic accuracy of this examination is limited. The sequences that are most affected include the diffusion-weighted imaging and gradient recalled echo sequence. There are a few ill-defined patchy foci of T2 FLAIR signal hyperintensity for instance involving the right centrum semiovale and the periventricular white matter surrounding the left frontal lobe and right atrium. T2 signal changes are also visualized within the right thalamus and dorsal midbrain. Postcontrast images reveal no clear evidence of associated intraparenchymal enhancement and there is no abnormal leptomeningeal enhancement. There is no intracranial mass effect or midline shift. No abnormal extra axial collection. Lateral and third ventricles are proportionate to the subarachnoid spaces. No hydrocephalus. Midline structures including the cervicomedullary junction are normal. There is somewhat heterogeneous bone marrow signal intensity within the upper cervical spine. There are trace mastoid tip effusions. Mild paranasal sinus disease is partially visualized within the ethmoid air cells. IMPRESSION: There are a few ill-defined nonspecific white matter signal changes as described above. There is no associated enhancement on postcontrast images. 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 Other possible inflammatory, infectious, or ischemic conditions are not excluded.
[2017-02-07 13:35] LABS: ABSOLUTE BASOPHIL COUNT 0 /CUMM (0.0-0.2); ABSOLUTE EOSINOPHIL COUNT 0 /CUMM (0.0-0.7); ABSOLUTE GRANULOCYTE CT 0.6 /CUMM (1.4-6.5); ABSOLUTE MONOCYTE COUNT 0.1 /CUMM (0.10-0.60); BASOPHIL % 0 % (0.0-2.0)
[2017-02-07 13:45] LABS: ABSOLUTE LYMPH COUNT 0.2 /CUMM (1.2-3.4); EOSINOPHIL % 3.5 % (0-5); GRANULOCYTE % 59.6 % (42.2-75.2); HEMATOCRIT 29.3 % (37-47); MEAN CORPUSCULAR HGB 26.9 PG (27.0-31.0); MEAN CORPUSCULAR HGB CONC 33.3 G/DL (33.0-37.0); MEAN CORPUSCULAR VOLUME 80.6 FL (81.0-99.0); MEAN PLATELET VOLUME 11.3 FL (7.4-10.4); PLATELET COUNT 58 /CUMM (130-400); RBC DISTRIBUTION WIDTH 15.8 % (11.5-14.5); RED BLOOD CELL CT 3.64 /CUMM (4.20-5.40)
[2017-02-07 16:02] VITALS: BP 88/56
--- NOTE | 2017-02-07 18:37 | Cons- Cardiology ---
General Information and HPI Consulting Request Date of Consult: 02/07/17 Requested By: KRISHNA HASKINS MD History of Present Illness: This patient is a 51 year old female with history of HIV/AIDS who was in her usual state of health until yesterday. She was sitting down at congregational when she suddenly passed out. There were no premonitory symptoms of lightheadedness and no accompanying palpitations. She was out for about a minute and then awakened completely alert. There was no associated incontinence. This patient does think that she was a bit dehydrated since it was very hot and she did not have air conditioning in her car. She also had not eaten or had anything to drink. This episode was witnessed and there were no rhythmic movements suggestive of seizure. At baseline this patient is active and is free of chest discomfort, shortness of breath, lightheadedness or palpitations. The patient has an abnormal head MRI and is neutropenic. 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 Home Who Do You Live With? spouse Services at Home: None Smoking Status: Never Smoked ETOH Use: denies use Functional Ability ADLs Independent: dressing, eating, toileting, bathing. Ambulation: independent IADLs Independent: shopping, housework, finances, food prep, telephone, transportation , medication admin. Exam & Diagnostic Data Vital Signs and I&O Vital Signs Date Time Temp Pulse Resp B/P B/P Pulse O2 O2 Flow FiO2 Mean Ox Delivery Rate 02/07 1602 98.1 78 20 88/56 98 Nasal 2.0L Cannula 02/07 0800 97 Nasal 2.0L Cannula 02/07 0756 98.9 67 20 118/76 97 Room Air 02/06 2253 99.1 74 20 108/70 100 02/06 2144 64 18 114/71 96 Room Air Intake & Output 02/07 1600 02/07 0800 02/07 0000 02/06 1600 02/06 0800 02/06 0000 Intake Total 600 854 6159 Output Total Balance 746 678 2337 Intake, IV 400 1000 Intake, Oral 480 100 Patient 140 lb Weight Weight Reported by Patient Measurement Method Physical Exam: General: WD/ WN female in NAD; alert and oriented x 3 HEENT: NC/ AT, PERRL, EOMI Neck: no JVD, no carotid bruit Heart: RRR w/o murmur Lungs: clear bilaterally Abdomen: soft, obese, NT, +ve bowel sounds Extremities: no edema Diagnostic Data EKG Results sinsu rhythm with low voltage Assessment/Plan Assessment/Plan * This patient likely had a brief syncopal episode related to dehydration. At present there is no evidence of an arrhythmia. She does have low voltage on her ECG although she is not tachycardic and does not have JVD so I have a low suspicion of a pericardial effusion. Nevertheless, I would obtain an echocardiogram. Continue to monitor on telemetry for 24 hours. The patient denies taking any medications at this time. Consult Acknowledgment - Thank you for your consult request.
--- NOTE | 2017-02-07 18:43 | Cons- Neurology ---
General Information and HPI Consulting Request Date of Consult: 02/07/17 Requested By: KRISHNA HASKINS MD Reason for Consult: Syncope Source of Information: patient, family Exam Limitations: no limitations History of Present Illness: This is a pleasant 51 year old AAW with HIV and currently AIDS (is off HAART on her own volition) who yesterday drove her unairconditioned car to [facility] and when arriving at the [facility] sat down and passed out. She slopped off to the floor, being caught by family members. Per her she was then starin blankly and unresponsively for one minute. She did not convulse, and no UI or TB. She recovered quickly and was not confused or lethargic. At she received fluids and was feeling back to baseline pretty quickly. In 2014 in the setting of a viral opportunistic infection she had a full blown GTC. She was evaluated thoroughly at [place] but was not placed on anti-epileptics. An MRI brain done today reveals white matter lesions and an EEG revealed one questionable sharp. Both exams were limited in quality. No other focal symptoms and has not had seizures on 2 years. Allergies/Medications Allergies: Coded Allergies: NO KNOWN ALLERGIES (01/19/11) Home Med List: No Known Home Medications Current Medications: Current Medications Sig/Neymar Start time Last Medication Dose Route Stop Time Status Admin Lorazepam 2 MG Q4P PRN 02/07 0230 AC IV Morphine Sulfate 0.5 MG Q8P PRN 02/07 1430 AC IV Patient Medication 1 ED .STK-MED ONE 02/07 1413 DC Teaching ED 02/07 1414 Potassium Chloride 40 MEQ ONCE ONE 02/06 2300 DC 02/06 PO 02/06 2301 2324 Potassium Chloride 40 MEQ CONTINOUS INFUSION 02/06 2245 AC 02/07 Sodium Chloride 1,000 ML IV 0220 Sodium Chloride 1,000 ML BOLUS ONE 02/06 1915 DC 02/06 IV 02/06 Review of Systems Review of Systems: As per HPI. Does not take HAART out of choice. 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 Home Who Do You Live With? spouse Services at Home: None Smoking Status: Never Smoked ETOH Use: denies use Functional Ability ADLs Independent: dressing, eating, toileting, bathing. Ambulation: independent IADLs Independent: shopping, housework, finances, food prep, telephone, transportation , medication admin. Exam & Diagnostic Data Vital Signs and I&O Vital Signs Date Time Temp Pulse Resp B/P B/P Pulse O2 O2 Flow FiO2 Mean Ox Delivery Rate 02/07 1602 98.1 78 20 88/56 98 Nasal 2.0L Cannula 02/07 0800 97 Nasal 2.0L Cannula 02/07 0756 98.9 67 20 118/76 97 Room Air 02/06 2253 99.1 74 20 108/70 100 02/06 2144 64 18 114/71 96 Room Air Intake & Output 02/07 1600 02/07 0800 02/07 0000 Intake Total 480 765 5320 Output Total Balance 092 833 4674 Intake, IV 400 1000 Intake, Oral 480 100 Patient 140 lb Weight Weight Reported by Patient Measurement Method Physical Exam: Alert and oriented x3. Thin. Conversant. Pleasant. Fluent and comprehends. Good attention and concentration. S1 and S2 normal. RRR. EOMI, LARRY, no nystagmus, no eyelid ptosis, face symmetric, tongue midline, uvula in raises in midline, V1-V3 sensation normal, hearing normal, VF intact. TPZ strong. Strength intact throughout distribution bilaterally 5/5 without drift. Reflexes symmetrical. Sensory exam is normal. FNF normal. Gait stable. Last 48 Hours of Lab Results: Laboratory Tests 02/07 02/07 1254 1254 Chemistry Sodium (137 - 145 mmol/L) 141 Potassium (3.5 - 5.1 mmol/L) 4.0 Chloride (98 - 107 mmol/L) 107 Carbon Dioxide (22 - 30 mmol/L) 26 Anion Gap (5 - 16) 8 BUN (7 - 17 mg/dL) 11 Creatinine (0.5 - 1.0 mg/dL) 0.8 Estimated GFR (>60 ml/min) > 60 BUN/Creatinine Ratio (7 - 25 %) 13.8 Iron (37 - 170 ug/dL) 47 TIBC (265 - 497 ug/dL) 319 Ferritin (11.1 - 264 ng/mL) 323.0 H Total Bilirubin (0.2 - 1.3 mg/dL) 0.5 Direct Bilirubin (< 0.4 mg/dL) 0.2 AST (14 - 36 U/L) 52 H ALT (9 - 52 U/L) 54 H Alkaline Phosphatase (<127 U/L) 207 H Troponin I (< 0.11 ng/ml) < 0.01 Total Protein (6.3 - 8.2 g/dL) 6.4 Albumin (3.5 - 5.0 g/dL) 3.6 TSH (0.270 - 4.200 uIU/mL) 0.720 Free T4 (0.64 - 1.79 ng/dL) 0.80 Hematology CBC w Diff MAN DIFF ORDERED WBC (4.8 - 10.8 /CUMM) 1.0 *L RBC (4.20 - 5.40 /CUMM) 3.64 L Hgb (12.0 - 16.0 G/DL) 9.8 L Hct (37 - 47 %) 29.3 L MCV (81.0 - 99.0 FL) 80.6 L MCH (27.0 - 31.0 PG) 26.9 L RDW (11.5 - 14.5 %) 15.8 H Plt Count (130 - 400 /CUMM) 58 L MPV (7.4 - 10.4 FL) 11.3 H Gran % (42.2 - 75.2 %) 59.6 Lymphocytes % (20.5 - 51.1 %) 24.1 Monocytes % (1.7 - 9.3 %) 12.8 H Eosinophils % (0 - 5 %) 3.5 Basophils % (0.0 - 2.0 %) 0 L Absolute Granulocytes (1.4 - 6.5 /CUMM) 0.6 L Segmented Neutrophils (42.2 - 75.2 %) 60 Band Neutrophils (0.0 - 5.0 %) 3 Absolute Lymphocytes (1.2 - 3.4 /CUMM) 0.2 L Lymphocytes (20.5 - 51.1 %) 26 Total Abs Lymphocytes Pending Monocytes (1.7 - 9.3 %) 10 H Absolute Monocytes (0.10 - 0.60 /CUMM) 0.1 L Eosinophils (0 - 5.0 %) 1 Absolute Eosinophils (0.0 - 0.7 /CUMM) 0 Absolute Basophils (0.0 - 0.2 /CUMM) 0 Platelet Estimate (ADEQUATE) DECREASED Hypochromic-Microcytic 1+ Anisocytosis 1+ Microcytic Cells 1+ Stomatocytes FEW PUBS MCHC (33.0 - 37.0 G/DL) 33.3 Immunology Lymphocyte Subset Cmmnt Pending Absolute CD3 Count Pending % CD3 Mature T-Lymphs Pending % CD4 [place] Pending Absolute CD4 Count Pending T-Help/Suppress Ratio Pending % CD8 Suppressor Pending Absolute CD8 Count Pending Serology HIV (1&2) Ag & Ab Conf Pending HIV 1&2 Ab Western Blot (NONREACTIVE) SENT FOR TESTING Toxicology Serum Copper Pending 02/07 02/07 02/06 06 0130 2133 Chemistry Lactic Acid (0.7 - 2.1 mmol/L) 1.8 Total Bilirubin Cancelled Direct Bilirubin Cancelled AST Cancelled ALT Cancelled Alkaline Phosphatase Cancelled Troponin I (< 0.11 ng/ml) < 0.01 Total Protein Cancelled Albumin Cancelled Urines Urine Color (YEL,AMB,STR) YEL Urine Clarity (CLEAR) CLEAR Urine pH (5.0 - 8.0) 7.0 Ur Specific [place] (1.001 - 1.035) <= 1.005 Urine Protein (NEG,<30 MG/DL) NEG Urine Ketones (NEG) NEG Urine Nitrite (NEG) NEG Urine Bilirubin (NEG) NEG Urine Urobilinogen (0.1 - 1.0 EU/dl) 0.2 Ur Leukocyte Esterase (NEG) TRACE H Ur Microscopic SEDIMENT EXAMINED Urine RBC (0 - 5 /HPF) RARE Urine WBC (0 - 2 /HPF) 1-3 H Ur Epithelial Cells (NONE,FEW) FEW Urine Bacteria (NEG/NONE) FEW H Urine Mucus (FEW,NONE) RARE Urine Hemoglobin (NEG) NEG Urine Glucose (N MG/DL) NEG 02/06 1830 Chemistry Sodium (137 - 145 mmol/L) 141 Potassium (3.5 - 5.1 mmol/L) 3.2 L Chloride (98 - 107 mmol/L) 108 H Carbon Dioxide (22 - 30 mmol/L) 24 Anion Gap (5 - 16) 9 BUN (7 - 17 mg/dL) 16 Creatinine (0.5 - 1.0 mg/dL) 1.0 Estimated GFR (>60 ml/min) 58 L BUN/Creatinine Ratio (7 - 25 %) 16.0 Glucose (65 - 99 mg/dL) 92 Lactic Acid (0.7 - 2.1 mmol/L) 1.7 Cancelled Calcium (8.4 - 10.2 mg/dL) 9.2 Total Bilirubin (0.2 - 1.3 mg/dL) 0.5 AST (14 - 36 U/L) 59 H ALT (9 - 52 U/L) 65 H Alkaline Phosphatase (<127 U/L) 227 H Troponin I (< 0.11 ng/ml) < 0.01 Total Protein (6.3 - 8.2 g/dL) 6.7 Albumin (3.5 - 5.0 g/dL) 3.8 Globulin (1.9 - 4.2 gm/dL) 2.9 Albumin/Globulin Ratio (1.1 - 2.2 %) 1.3 Vitamin B12 (239 - 931 pg/mL) > 1000 H Hematology CBC w Diff MAN DIFF ORDERED WBC (4.8 - 10.8 /CUMM) 2.0 L RBC (4.20 - 5.40 /CUMM) 3.86 L Hgb (12.0 - 16.0 G/DL) 10.2 L Hct (37 - 47 %) 30.7 L MCV (81.0 - 99.0 FL) 79.6 L MCH (27.0 - 31.0 PG) 26.5 L RDW (11.5 - 14.5 %) 15.9 H Plt Count (130 - 400 /CUMM) 66 L MPV (7.4 - 10.4 FL) 11.1 H Gran % (42.2 - 75.2 %) 73.5 Lymphocytes % (20.5 - 51.1 %) 12.8 L Monocytes % (1.7 - 9.3 %) 12.1 H Eosinophils % (0 - 5 %) 1.6 Basophils % (0.0 - 2.0 %) 0 L Absolute Granulocytes (1.4 - 6.5 /CUMM) 1.5 Segmented Neutrophils (42.2 - 75.2 %) 71 Band Neutrophils (0.0 - 5.0 %) 6 H Absolute Lymphocytes (1.2 - 3.4 /CUMM) 0.3 L Lymphocytes (20.5 - 51.1 %) 13 L Monocytes (1.7 - 9.3 %) 10 H Absolute Monocytes (0.10 - 0.60 /CUMM) 0.2 Absolute Eosinophils (0.0 - 0.7 /CUMM) 0 Absolute Basophils (0.0 - 0.2 /CUMM) 0 Platelet Estimate (ADEQUATE) DECREASED Hypochromic-Microcytic 1+ Anisocytosis 1+ Microcytic Cells 1+ PUBS MCHC (33.0 - 37.0 G/DL) 33.3 Serology RPR Titer/FTA (NONREACTIVE) NONREACTIVE Imaging/Other Studies: MRI brain reviewed - disagree with read. The quality of the MRI brain is poor. However, the white matter lesions do not seem to be enhancing and seem to be periventricualr in nature suggestive of vascular disease. EEG reviewed - overall normal. There is one sharp in the C4 central lead, however the finding is too limited as evidence for a seizure. Assessment/Plan Assessment: 51 year old woman with AIDs, that most likely suffered a syncpoal episode. However, due to the limitation in the quality of the MRI and the length of the EEG (and not full electrode array), would recommend repeating those tests as outpt. Also, discussed with her the importance of being on HAART. Of note she has elevated LFTs, thrombocytopenia, anemia and neurotpenia that are likely related to her HIV/AIDS. Recommendations: Follow up with neurology as outpt to repeat testing. Consult Acknowledgment - Thank you for your consult request.
--- NOTE | 2017-02-07 20:56 | ELECTROENCEPHALOGRAM REPORT ---
Electroencephalogram Report Electroencephalogram Results Date of service: 02/07/17 Attending MD: KRISHNA HASKINS MD Channel Marketing Specialist: Humberto EEG Number: [id number] Test Utilizes: Limited pediatric channel recording Pertinent Hx/Physical/Neuro Findings/Clin Diagnosis: 51 year old with AIDS with a witnessed syncopal event. Inpatient Medications: Current Medications Sig/Neymar Start time Last Medication Dose Route Stop Time Status Admin Lorazepam 2 MG Q4P PRN 02/07 0230 AC IV Morphine Sulfate 0.5 MG Q8P PRN 02/07 1430 AC IV Patient Medication 1 ED .STK-MED ONE 02/07 1413 DC Teaching ED 02/07 1414 Potassium Chloride 40 MEQ ONCE ONE 02/06 2300 DC 02/06 PO 02/06 2301 2324 Potassium Chloride 40 MEQ CONTINOUS INFUSION 02/06 2245 AC 02/07 Sodium Chloride 1,000 ML IV 0220 Interpretation: The recording demonstrates the normal frequency gradient, faster frequencies being frontally and slower posteriorly. The posterior dominant rhythm is estimated at 8 hertz bilaterally. There is one solitary sharp seen throughout the study localizing the right cental lead. Otherwise there are no other sharps or spikes. Impression: Limited evaluation due to usage of a smaller amount of leads than usual. However , the recording is mostly normal short of a rare central sharp. If there is a high clinical suspicion for a seizure recommend repeating a 24 hour study.
--- NOTE | 2017-02-07 21:16 | ECHOCARDIOGRAM REPORT ---
JANNETTE MAN Age: 51 : 1965 Gender: F Exam Date: 02/07/2017 16:34 Exam Location: [address] Ht (in): 64 Wt (lb): 140 BSA: 1.70 BP: 88 / 56 Ordering Physician: SAGAR WEIR MD Referring Physician: SAGAR WEIR MD Technologist: Mely You [facility] Room Number: [id number] Indications: PRESYNCOPE/SYNCOPE Rhythm: Sinus Technical Quality: Good FINDINGS Left Ventricle Left ventricular cavity size normal. Left ventricular wall thickness mildly increased. No obvious regional wall motion abnormalities. Left ventricular ejection fraction is estimated at > 60 %. Normal left ventricular diastolic filling pattern for age. Right Ventricle Normal right ventricular size and function. Right Atrium Normal right atrial size. Left Atrium Normal left atrial size. Mitral Valve Structurally normal mitral valve. No mitral stenosis. Trace mitral regurgitation. Aortic Valve No aortic stenosis. Trileaflet aortic valve. Tricuspid Valve Structurally normal tricuspid valve. No tricuspid stenosis. Trace tricuspid regurgitation. Unable to estimate the right ventricular systolic pressure. Pulmonic Valve Pulmonic valve not well visualized, grossly normal. Pericardium No pericardial effusion. Great Vessels Normal size aortic root and proximal ascending aorta. CONCLUSIONS Left ventricular cavity size normal. Left ventricular wall thickness mildly increased. No obvious regional wall motion abnormalities. Left ventricular ejection fraction is estimated at > 60 %. Normal left ventricular diastolic filling pattern for age. Normal right ventricular size and function. No pericardial effusion. Silvio Meehan M.D. (Electronically Signed) Final Date: 07 February 2017 21:15 MEASUREMENTS (Male / Female) Normal Values 2D ECHO LV Diastolic Diameter PLAX 3.7 cm 4.2 - 5.9 / 3.9 - 5.3 cm LV Systolic Diameter PLAX 1.7 cm 2.1 - 4.0 cm LV Fractional Shortening PLAX 54.1 % 25 - 46 % LV Ejection Fraction 2D Teich 85.6 % IVS Diastolic Thickness 1.2 cm LVPW Diastolic Thickness 1.2 cm LV Relative Wall Thickness 0.6 RV Internal Dim ED PLAX 2.3 cm 1.9 - 3.8 cm LVOT Diameter 2.1 cm Aortic Root Diameter 2.7 cm LA Systolic Diameter LX 3.7 cm 3.0 - 4.0 / 2.7 - 3.8 cm LA Volume 30.0 cm 18 - 58 / 22 - 52 cm Ascending Aorta Diameter 3.2 cm DOPPLER AV Peak Velocity 114.0 cm/s AV Peak Gradient 5.2 mmHg AV Mean Velocity 76.3 cm/s AV Mean Gradient 3.0 mmHg AV Velocity Time Integral 24.3 cm LVOT Peak Velocity 69.3 cm/s LVOT Peak Gradient 1.9 mmHg LVOT Mean Velocity 47.3 cm/s LVOT Mean Gradient 1.0 mmHg LVOT Velocity Time Integral 15.3 cm LVOT Stroke Volume 53.0 cm AV Area Cont Eq vti 2.2 cm AV Area Cont Eq pk 2.1 cm MV Peak Velocity 90.3 cm/s MV Peak Gradient 3.3 mmHg MV Mean Velocity 47.3 cm/s MV Mean Gradient 1.0 mmHg Mitral E Point Velocity 71.1 cm/s Mitral A Point Velocity 53.8 cm/s Mitral E to A Ratio 1.3 MV PHT Velocity 92.3 cm/s MV Deceleration Rock 468.0 cm/s MV Pressure Half Time 59.2 ms MV Area PHT 3.7 cm MV Deceleration Time 140.0 ms TR Peak Velocity 85.3 cm/s TR Peak Gradient 2.9 mmHg Right Atrial Pressure 5.0 mmHg Pulmonary Artery Systolic Pressu 7.9 mmHg Right Ventricular Systolic Press 7.9 mmHg PV Peak Velocity 112.0 cm/s PV Peak Gradient 5.0 mmHg PV Mean Velocity 75.2 cm/s PV Mean Gradient 3.0 mmHg PV Velocity Time Integral 25.9 cm LV E' Lateral Velocity 11.5 cm/s Mitral E to LV E' Lateral Ratio 6.2 LV E' Septal Velocity 9.5 cm/s Mitral E to LV E' Septal Ratio 7.5
--- NOTE | 2017-02-07 22:32 | Patient Discharge Instructions ---
Discharge Instructions General Discharge Information You were seen/treated for: Syncope Special Instructions: Follow up with PCP in a week after discharge Follow up with Neurologist in a week after discharge and recommend obtaining a follow up MRI and EEG Follow up with Idris Andrews in a week after discharge. Diet Continue normal diet: Yes Activity Full Activity/No Limits: Yes Acute Coronary Syndrome Inclusion Criteria At DC or during hospital stay patient has or had the following: ACS DIAGNOSIS No Discharge Core Measures Meds if any: Prescribed or Continued at Discharge Meds if any: NOT Prescribed or Continued at Discharge Congestive Heart Failure Inclusion Criteria At DC or during hospital stay patient has or had the following: CHF DIAGNOSIS No Discharge Core Measures Meds if any: Prescribed or Continued at Discharge Meds if any: NOT Prescribed or Continued at Discharge Cerebrovascular accident Inclusion Criteria At DC or during hospital stay patient has or had the following: CVA/TIA Diagnosis No Discharge Core Measures Meds if any: Prescribed or Continued at Discharge Meds if any: NOT Prescribed or Continued at Discharge Venous thromboembolism Inclusion Criteria VTE Diagnosis No VTE Type NONE VTE Confirmed by (Test) NONE Discharge Core Measures - Per Current guidelines, there needs to be overlap - treatment for the first 5 days of Warfarin therapy. - If discharged on Warfarin prior to 5 days of - overlap therapy, the patient will need to be - assessed for post discharge needs including - *Post discharge parental anticoagulation - *Warfarin and/or parental anticoagulation education - *Follow up date to check INR post discharge At least 5 days overlap therapy as Inpatient No Meds if any: Prescribed or Continued at Discharge Note: Overlap Therapy is Warfarin and Anticoagulant Meds if any: NOT Prescribed or Continued at Discharge
[2017-02-08 01:04] VITALS: BP 96/60
[2017-02-08 03:48] VITALS: BP 100/62
--- NOTE | 2017-02-08 07:29 | PN- Housestaff ---
MARLENY SHIPLEY MD,[facility] 02/08/17 0729: Subjective Follow-up For: Syncope Hypokalemia Pancytopenia History of HIV not on treatment Complaints: no complaints Tele-Events Since Last Visit: No overnight events. Subjective: Patient feels okay. She did not have any episodes of presyncope, chest pain or shortness of breath overnight. She remained afebrile. Orthostatics negative yesterday. Review of Systems Constitutional: Denies: chills, fever. Cardiovascular: Denies: chest pain, palpitations. Respiratory: Denies: cough, short of breath. Gastrointestinal: Denies: abdominal pain, nausea, vomiting. Genitourinary: Denies: dysuria. Musculoskeletal: Denies: back pain. Objective Last 24 Hrs of Vital Signs/I&O Vital Signs Date Time Temp Pulse Resp B/P B/P Pulse O2 O2 Flow FiO2 Mean Ox Delivery Rate 02/08 0811 97.6 51 18 110/78 97 Room Air 02/08 0348 53 100/62 02/08 0104 98.1 80 20 96/60 98 Nasal Cannula 02/07 1602 98.1 78 20 88/56 98 Nasal 2.0L Cannula Intake & Output 02/08 1600 02/08 0800 02/08 0000 Intake Total 370 Output Total 290 Balance 80 Intake, IV 10 Intake, Oral 360 Output, Urine 290 Physical Exam General Appearance: Alert, Oriented X3, Cooperative, No Acute Distress HEENT: Atraumatic Neck: Supple Cardiovascular: Regular Rate, Normal S1, Normal S2, No Murmurs Lungs: Clear to Auscultation, Normal Air Movement Abdomen: Normal Bowel Sounds, Soft, No Tenderness Neurological: Normal Speech, Normal Tone, Sensation Intact Extremities: No Edema, left upper extremity forward with cast Vascular: Normal Pulses Current Medications: Current Medications Sig/Neymar Start time Last Medication Dose Route Stop Time Status Admin Lorazepam 2 MG Q4P PRN 02/07 0230 AC IV Morphine Sulfate 0.5 MG Q8P PRN 02/07 1430 AC IV Patient Medication 1 ED .STK-MED ONE 02/07 1413 [place] Teaching ED 02/07 1414 Potassium Chloride 40 MEQ CONTINOUS INFUSION 02/06 2245 AC 02/07 Sodium Chloride 1,000 ML IV 0220 Sodium Chloride 500 ML BOLUS ONE 02/08 0130 DC 02/08 IV 02/08 022 0136 Last 24 Hrs of Lab/Rafita Results Last 24 Hrs of Labs/Mics: Laboratory Tests 02/08/17 0655: Total Bilirubin 0.4, Direct Bilirubin 0.2, AST 63 H, ALT 60 H, Alkaline Phosphatase 225 H, Total Protein 6.0 L, Albumin 3.3 L, CBC w Diff Pending, WBC Pending, RBC Pending, Hgb Pending, Hct Pending, MCV Pending, MCH Pending, RDW Pending, Plt Count Pending, MPV Pending, PUBS MCHC Pending 02/07/17 1254: Total Abs Lymphocytes Pending, HIV 1&2 Ab Western Blot SENT FOR TESTING 02/07/17 1254: Anion Gap 8, Estimated GFR > 60, BUN/Creatinine Ratio 13.8, Iron 47, TIBC 319, Ferritin 323.0 H, Total Bilirubin 0.5, Direct Bilirubin 0.2, AST 52 H, ALT 54 H, Alkaline Phosphatase 207 H, Troponin I < 0.01, Total Protein 6.4, Albumin 3.6, TSH 0.720, Free T4 0.80, CBC w Diff MAN DIFF ORDERED, RBC 3.64 L, MCV 80.6 L, MCH 26.9 L, RDW 15.8 H, MPV 11.3 H, Gran % 59.6, Lymphocytes % 24.1, Monocytes % 12.8 H, Eosinophils % 3.5, Basophils % 0 L, Absolute Granulocytes 0.6 L, Segmented Neutrophils 60, Band Neutrophils 3, Absolute Lymphocytes 0.2 L, Lymphocytes 26, Monocytes 10 H, Absolute Monocytes 0.1 L, Eosinophils 1, Absolute Eosinophils 0, Absolute Basophils 0, Platelet Estimate DECREASED, Hypochromic-Microcytic 1+, Anisocytosis 1+, Microcytic Cells 1+, Stomatocytes FEW, PUBS MCHC 33.3, Lymphocyte Subset Cmmnt Pending, Absolute CD3 Count Pending , % CD3 Mature T-Lymphs Pending, % CD4 [place] Pending, Absolute CD4 Count Pending, T-Help/Suppress Ratio Pending, % CD8 Suppressor Pending, Absolute CD8 Count Pending, HIV (1&2) Ag & Ab Conf Pending, Serum Copper Pending Microbiology 02/07 1335 BLOOD: Blood Culture - RECD 02/07 1307 BLOOD: Blood Culture - RECD Lines/Diet/Fluids Fluids/Infusions: patient received normal saline bolus 500 ml overnight Lines: peripheral lines Restraints: none Assessment/Plan Assessment: 51-year-old female with past medical history significant for HIV not currently on any treatment, unaware of CD4 count and viral load, history of extended hospitalization at [facility] for HIV related complications, unremarkable history for seizures not on any antiseizure medication, decreased by mouth intake, with transient loss of consciousness at [facility] admitted for syncope. was witness to the episode denied any muscle twitching, post ictal confusion, tongue bite, bladder or bowel incontinence. Syncope -Most likely orthostaics (as supported by history of decreased by mouth intake recently) vs neurological ( possibility of intracranial foci versus lesions in the setting of untreated HIV infection ) vs unlikely arrythmias or vasovagal. - Orthostatics, check yesterday negative - Overnight patient received 500 mL bolus of normal saline because of borderline blood pressure of 96/60. - No acute EKG changes and 3 sets of troponins negative, ACS ruled out - Advise compression stockings if orthostatic positive - Echocardiogram no valvular abnormality with ejection fraction of more than 60% . No pericardial effusion - Cardio evaluation also stated most likely cause of syncope related to dehydration - Head CT rules out any acute Intracranial bleed or masses. - Head MRI showed few ill-defined nonspecific white matter signal changes. There is no associated enhancement on postcontrast images. 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 Pancytopenia Likely as a result of progression of HIV without treatment. Patient was counseled at length but still did not agree to start any treatment for now. Iron studies mildly elevated ferritin which can be an acute phase reactant. Patient on neutropenic precautions. ANC 630 current labs pending. Request to obtain records from [facility] placed. Hypokalemia Patient denied any active diarrhea. Likely secondary to malnutrition resolved with replacement Transaminitis Possible cause of transaminitis unclear. LFTs showed increased AST to 63 and increased ALT to 60. Patient is currently not on any hepatotoxic medication. Right upper quadrant ultrasound to rule out underlying hepatitis C or any other hepatic lesion pending. Patient is full code Patient is on Alps for DVT prophylaxis Patient is on regular diet Patient is on pain management Patient has been monitored in observation and will be discharged as her clinical condition has improved and no arrythmias were dtected during Telemonitoring Problem List: 1. Leukopenia 2. HIV (human immunodeficiency virus infection) 3. Pancytopenia 4. Hypokalemia 5. Transaminitis Pain Ratin Pain Location: NA Pain Goal: Pain 4 or less Pain Plan: Pain management Tomorrow's Labs & Rationales: CBC for pancytopenia LFTs for transaminitis DVT/Prophylaxis: DEEPA Coronado MD 02/08/17 1315: Attending MD Review Statement Attending Statement Attending MD Statement: examined this patient, discuss w/resident/PA/COLLATERAL CLERK, agreed w/resident/PA/COLLATERAL CLERK, discussed with family, reviewed EMR data (avail), discussed with nursing, discussed with case mgmt, amended to note Attending Assessment/Plan: Patient seen and examined. Resting comfortably and not in any acute distress. No issues overnight. No events on telemetry. No seizure episodes observed here in the hospital. She is alert and oriented times 3. She is mentating appropriately and ambulating freely. She has no neurologic deficits on examination. Her EEG showed no evidence of seizure activity however it was considered suboptimal by the neurologist and an outpatient 24 hour EEG is recommended. MRI was also reviewed by the neurology service and his recommendation is to repeat the study as an outpatient due to artifacts on current imaging. This was explained in detail with the patient. She verbalized understanding in the presence of her . She will be following up with the neurology service as an outpatient. Incidentally noted on her labs were pancytopenia transaminitis. Her CBCs stable compared to yesterday. She is aware of some abnormalities on her labs chronically. This is likely secondary to underlying HIV. Have advised her to follow-up with her infectious disease specialist and encourage returning to HAART therapy. She states she will consider this as an outpatient. Her LFTs also mildly elevated again this is likely secondary to her HIV. Right upper quadrant sonogram shows no acute pathology. She has been informed of this and advised to follow-up with her doctor. She declined referral to the outpatient medical service here in [place] and wishes to follow-up with her ID specialist for referral to primary care
[2017-02-08 08:11] VITALS: BP 110/78
[2017-02-08 08:42] LABS: ABSOLUTE BASOPHIL COUNT 0 /CUMM (0.0-0.2); ABSOLUTE GRANULOCYTE CT 0.5 /CUMM (1.4-6.5); ABSOLUTE MONOCYTE COUNT 0.1 /CUMM (0.10-0.60); BASOPHIL % 0 % (0.0-2.0); MEAN CORPUSCULAR HGB 26.3 PG (27.0-31.0)
[2017-02-08 09:22] LABS: ABSOLUTE EOSINOPHIL COUNT 0 /CUMM (0.0-0.7); ABSOLUTE LYMPH COUNT 0.3 /CUMM (1.2-3.4); EOSINOPHIL % 4.1 % (0-5); GRANULOCYTE % 52.7 % (42.2-75.2); HEMATOCRIT 28.8 % (37-47); MEAN CORPUSCULAR HGB CONC 33.1 G/DL (33.0-37.0); MEAN CORPUSCULAR VOLUME 79.4 FL (81.0-99.0); MEAN PLATELET VOLUME 11.5 FL (7.4-10.4); PLATELET COUNT 50 /CUMM (130-400); RBC DISTRIBUTION WIDTH 16.2 % (11.5-14.5); RED BLOOD CELL CT 3.63 /CUMM (4.20-5.40)
--- NOTE | 2017-02-08 10:41 | ULTRASOUND REPORT ---
EXAMINATION: US ABDOMEN COMPLETE CLINICAL INFORMATION: Transaminitis. COMPARISON: None TECHNIQUE: Real-time imaging of the abdominal viscera. FINDINGS: PANCREAS: Normal. ABDOMINAL AORTA: Normal in caliber. INFERIOR VENA CAVA: Visualized portions are normal. LIVER: Liver has normal size, contour and echotexture. No sonographic evidence of cirrhosis, mass or intrahepatic bile duct dilatation. GALLBLADDER: The gallbladder is physiologically distended and its wall is 2-3 mm thick. No gallbladder polyp, cholelithiasis, wall edema, pericholecystic fluid or Harris's sign. COMMON BILE DUCT: Normal in caliber measuring 0.4 cm in diameter. RIGHT KIDNEY: Normal. No hydronephrosis. No renal calculi or focal parenchymal lesions. The kidney measures 10.1 cm in maximum dimension. LEFT KIDNEY: Normal. No hydronephrosis. No renal calculi or focal parenchymal lesions. The kidney measures 10.5 cm in maximum dimension. SPLEEN: Normal. The spleen measures 10 cm in maximum dimension. No focal splenic lesions. FREE FLUID: None. IMPRESSION: Normal findings in the examined abdomen. No evidence of sonographic evidence of cirrhosis, cholelithiasis or biliary tract obstruction.
--- NOTE | 2017-02-08 13:30 | Discharge Summary ---
Visit Information Visit Dates Admission Date: 02/06/17 Discharge Date: 02/08/17 Hospital Course Course Attending Physician: KRISHNA HASKINS MD Primary Care Physician: PATIENT HAS NO PRIMARY CARE DR, only Follows up with RASHEEDA colorado at [place] Idris Andrews MD Hospital Course: 51-year-old female with past medical history significant for HIV not currently on any treatment, unaware of CD4 count and viral load, history of extended hospitalization at [facility] for HIV related complications, unremarkable history for seizures not on any antiseizure medication, decreased by mouth intake, with transient loss of consciousness at [facility] admitted for syncope. was witness to the episode denied any muscle twitching, post ictal confusion, tongue bite, bladder or bowel incontinence. On admission, Vitals: Afebrile, pulse 81, RR 18, blood pressure upon arrival 96/ 89 improved to 118/73 with hydration, saturating well on room air. On physical Examination patient was alert and oriented to time person and place, cooperative , no acute distress, neck supple, JVD normal, no lymphadenopathy, mucosa moist, no focal neurological deficit, no dependent edema, no obvious skin rashes, cardiac exam, S1-S2, RRR. Lung examination, Clear to auscultate bilaterally. Abdomen: Soft, NT, ND, bowel sounds present. Left upper extremity wrapped with cast. On admission labs, WBC 2.0, hemoglobin 10.2, hematocrit 30.7, platelets 66, lymphocytes 12%, band 6, sodium 141, potassium 3.2, chloride 108, bicarbonate 24 , BUN 16, creatinine 1.0, anion gap 9, glucose 92, AST 59, AST 65, alkaline phosphatase 227, troponin less than 0.01. UA positive for leukocyte esterase. CXR: No acute cardiopulmonary disease. CT head:No acute intracranial pathology. EKG: Unremarkable Patient was placed in observation on telemetry so for the management of following problems Syncope On admission heart differentials are broad, likely orthostaics (as supported by history of decreased by mouth intake recently) vs neurological ( possibility of intracranial foci versus lesions in the setting of untreated HIV infection ) vs unlikely arrythmias or vasovagal. Orthostatics, were negative when checked on telemetry floor. Patient did receive 500 mL bolus of normal saline because of borderline blood pressure of 96/60. No acute EKG changes and 3 sets of troponins negative, ACS ruled out. Echocardiogram showed no valvular abnormality with ejection fraction of more than 60%. No pericardial effusion. Cardio evaluation also stated most likely cause of syncope related to dehydration. Head MRI showed few ill-defined nonspecific white matter signal changes. There is no associated enhancement on postcontrast images. 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 Neurology evaluation was obtained and they stated that suspicion for PML is very low however patient should have a better quality MRI and a repeat EEG as an outpatient. History of HIV/Pancytopenia Likely as a result of progression of HIV without treatment. Patient was counseled at length but still did not agree to start any treatment for now. Iron studies showed mildly elevated ferritin which can be an acute phase reactant. Patient was placed on neutropenic precautions. ANC [id number]. Request to obtain records from [facility] placed. RPR nonreactive, serum copper, CD4 count and HIV testing results pending. Hypokalemia Patient denied any active diarrhea. Likely secondary to malnutrition resolved with replacement Transaminitis Possible cause of transaminitis unclear. LFTs showed increased AST 52 to 63 and increased ALT 54 to 60. Patient was not on any hepatotoxic medication. Right upper quadrant ultrasound was ordered to rule out underlying hepatic lesion, which was negative for any acute findings. Patient was full code Patient was on Alps for DVT prophylaxis Patient was on regular diet Patient was on pain management Please send a copy of this discharge summary to Idris Andrews MD at [facility] Fax number [phone] Allergies: Coded Allergies: NO KNOWN ALLERGIES (01/19/11) Disposition Summary Disposition Principal Diagnosis: Syncope Hypokalemia Pancytopenia Additional Diagnosis: History of HIV not on treatment Discharge Disposition: home or self care Discharge Instructions General Discharge Information Code Status: Full Code Patient's Diet: Regular diabetic Patient's Activity: As tolerated Follow-Up Instructions/Appts: Follow up with Neurologist in a week after discharge and recommend obtaining a follow up MRI and EEG Follow up with Idris Andrews in a week after discharge. Copies To: DEEPA WHITE M.D
== END 2017-02-08 13:10 ==
LOC: ERH 18:01 → 1NO 21:10 → ERHI 21:10 → 1NO 21:10 → CANRESERV 21:52 → ENRESERV 21:52 → ENTRNSPT 22:21 → ENRESERV 22:24 → 1NO 22:39 → CMPTRNSPT 22:46 → 1NO 02-08 08:48 → ENPENDDIS 02-08 12:06 → 1NO 02-08 13:10
PROVIDERS: Internal Medicine Hematology & Oncology; Physician Assistant Medical; Student in an Organized Health Care Education/Training Program; ADMIT Internal Medicine
DX: R55 Syncope and collapse (principal); B20 Human immunodeficiency virus [HIV] disease; D61.818 Other pancytopenia; E87.6 Hypokalemia; R74.0 Nonspecific elevation of levels of transaminase and lactic acid dehydrogenase [LDH]
CPT/HCPCS: 70552; 86359; 36415; 70553; 81001; 82436; 86701; 86702; 87040; 87389; 87535; 93005; 93010; 93306; 95816; 96360; 96374; A9579; G0378